=== PATIENT | male | born 1990 | race Caucasian/White ===

== ENCOUNTER 2016-06-22 00:19 | Emergency (ER) | payer OTHER ==
[~2016-06-22] VITALS: Ht 180.3 cm; Wt 77.1 kg
--- NOTE | 2016-06-22 01:15 | ED GENERAL ADULT ---
History of Present Illness General Chief Complaint: General Adult Stated Complaint: RIGHT SIDE TONSIL PAIN Source: patient, family, old records Exam Limitations: no limitations Vital Signs & Intake/Output Vital Signs & Intake/Output Vital Signs Date Time Temp Pulse Resp B/P Pulse O2 O2 Flow FiO2 Ox Delivery Rate 06/22 0058 97.5 79 16 143/84 100 Room Air Allergies Coded Allergies: No Known Allergies (06/22/16) Triage Note: 26YO MALE TO TRIAGE W/CO "SWOLLEN R TONSIL" STATES HE HAD "SORE THROAT X 2 D AND HE TOOK ANTIBIOTICS THAT WERE LEFT OVER X 3 DOSES AND NOW PAIN AND SWELLING HAVE WORSENED"CO PAIN TRAVELING TO R EAR AND DOWN HIS NECK. Triage Nurses Notes Reviewed? yes HPI: Patient has noticed a swollen lymph node underneath his right draw approximately one week ago. Patient has a history of recurrent strep throat. Patient had some leftover amoxicillin at home so he took it for 3 days but he states that it did not help. Upon stopping the amoxicillin the swelling got worse. Patient currently has chills but no fevers. Patient states that it is painful to swallow both food and liquids. Patient states that he is able to swallow without difficulty just hurts to do so. Patient denies any difficulty breathing. Patient was looking online and noticed that he might have an abscess in his throat so comes in for evaluation. Past History Travel History Traveled to [place] past 21 day No Medical History Any Pertinent Medical History? see below for history Other Medical Hx: Recurrent strep throat Surgical History Surgical History: non-contributory Psychosocial History What is your primary language [place] Tobacco Use: Current Not Daily Daily Tobacco Use Amount/Type: =< 4 Cigarettes daily ETOH Use: occasional use Illicit Drug Use: denies illicit drug use Family History Hx Contributory? No Review of Systems Review of Systems Constitutional: Reports: no symptoms. EENTM: Reports: see HPI, throat pain. Respiratory: Reports: no symptoms. Cardiovascular: Reports: no symptoms. GI: Reports: no symptoms. Genitourinary: Reports: no symptoms. Musculoskeletal: Reports: no symptoms. Skin: Reports: no symptoms. Neurological/Psychological: Reports: no symptoms. Hematologic/Endocrine: Reports: no symptoms. Immunologic/Allergic: Reports: no symptoms. All Other Systems: Reviewed and Negative Physical Exam Physical Exam General Appearance: well developed/nourished, alert, awake, mild distress Head: atraumatic Eyes: Bilateral: PERRL, EOMI. Ears, Nose, Throat: PHARYNGEAL ERYTHEMA BUT NO EXUDATES. pOSITIVE SWELLING TO THE RIGHT POSTERIOR TONSILLAR AREA. vERY SLIGHT UVULAR DEVIATION TO THE LEFT. tHERE IS NO HOT POTATO VOICE. Neck: lymphadenopathy (R) Respiratory: normal breath sounds, chest non-tender, no respiratory distress, lungs clear Cardiovascular: regular rate/rhythm, normal peripheral pulses Gastrointestinal: normal bowel sounds, soft, non-tender, no organomegaly Neurologic/Psych: no motor/sensory deficits, awake, alert, oriented x 3, normal gait, normal mood/affect Skin: intact, normal color, warm/dry Lymphatic: adenopathy Core Measures ACS in differential dx? No CVA/TIA Diagnosis: No Severe Sepsis Present: No Septic Shock Present: No Progress Differential Diagnoses I considered the following diagnoses in my evaluation of the patient: [ Retropharyngeal abscess, peritonsillar abscess, lymphadenitis] Plan of Care: Orders Procedure Date/time Status COMPREHENSIVE METABOLIC PANEL 06/22 110 Complete CBC WITHOUT DIFFERENTIAL 06/22 110 Complete Laboratory Tests 06/22/16 0141: Anion Gap 13, Estimated GFR > 60, BUN/Creatinine Ratio 12.2, Glucose 77, Calcium 9.9, Total Bilirubin 0.6, AST 22, ALT 28, Alkaline Phosphatase 66, Total Protein 8.0, Albumin 4.9, Globulin 3.1, Albumin/Globulin Ratio 1.6, CBC w Diff NO MAN DIFF REQ, RBC 4.81, MCV 90.0, MCH 30.6, RDW 13.1, MPV 8.3, Gran % 77.0 H, Lymphocytes % 13.3 L, Monocytes % 7.3, Eosinophils % 1.8, Basophils % 0.6, Absolute Granulocytes 10.3 H, Absolute Lymphocytes 1.8, Absolute Monocytes 1.0 H, Absolute Eosinophils 0.2, Absolute Basophils 0.1, PUBS MCHC 34.0 Diagnostic Imaging: Viewed by Me: CT Scan. Discussed w/RAD: CT Scan. Radiology Impression: PATIENT: CONSUELO TAYLOR PRESENT AGE: 26 PATIENT ACCOUNT NO: [id number] : 89 LOCATION: [facility] ORDERING PHYSICIAN: IVAN JONES MD SERVICE DATE: 06/22/16 EXAM TYPE: CAT - CT NECK W IV CONTRAST EXAMINATION: CT NECK WITH CONTRAST CLINICAL INFORMATION: Right posterior pharyngeal swelling. Concern for abscess. COMPARISON: None. TECHNIQUE: Contiguous helical images of the neck were obtained following the administration of IV contrast. 94 mL of Optiray 320 were administered without incident. Multiplanar reconstructions were performed. DLP: 377 mGy-cm. FINDINGS: There is soft tissue fullness to the right parapharyngeal space with a subtle area of low attenuation centrally measuring 12 mm with faint surrounding enhancement. There is no adjacent fat stranding. There are no drainable fluid collections. There are no pathologically enlarged cervical lymph nodes. The vasculature of the neck is unremarkable. The visualized base of the brain is unremarkable. The paranasal sinuses and mastoid air cells are clear. A normal thyroid gland is identified. The visualized lung apices are clear. 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 DICTATED BY: BRITTANY BROWN MD DATE/TIME DICTATED:06/22/16205 HOSPICE CLINICAL MANAGER: AISSATOU DATE/TIME TRANSCRIBED:06/22/16205 CONFIDENTIAL, DO NOT COPY WITHOUT APPROPRIATE AUTHORIZATION. <Electronically signed in Other Vendor System> SIGNED BY: BRITTANY BROWN MD 06/22/16214 Initial ED EKG: none Departure Departure Disposition: HOME OR SELF CARE Condition: Stable Clinical Impression Primary Impression: Tonsillitis Referrals: BENJAMIN CAMPBELL MD PATIENT HAS NO PRIMARY CARE DR (PCP/Family) Additional Instructions: TAKE ANTIBIOTICS PRESCRIBED RETURN IF SYMPTOMS WORSEN OR FOR ANY CONCERNS Departure Forms: Customer Survey General Discharge Information Prescriptions: Current Visit Scripts Amoxicillin/Potassium Clav (Augmentin 875-125 Tablet) 1 TAB PO BID #20 TAB Critical Care Note Critical Care Note Critical Care Time: non-applicable
[2016-06-22 01:49] LABS: ABSOLUTE BASOPHIL COUNT 0.1 /CUMM (0.0-0.2); ABSOLUTE EOSINOPHIL COUNT 0.2 /CUMM (0.0-0.7); ABSOLUTE GRANULOCYTE CT 10.3 /CUMM (1.4-6.5); ABSOLUTE LYMPH COUNT 1.8 /CUMM (1.2-3.4); BASOPHIL % 0.6 % (0.0-2.0); EOSINOPHIL % 1.8 % (0-5); HEMATOCRIT 43.3 % (42-52); MEAN CORPUSCULAR HGB 30.6 PG (27.0-31.0); MEAN PLATELET VOLUME 8.3 FL (7.4-10.4); PLATELET COUNT 203 /CUMM (130-400); RBC DISTRIBUTION WIDTH 13.1 % (11.5-14.5); RED BLOOD CELL CT 4.81 /CUMM (4.70-6.10); WHITE BLOOD CELL COUNT 13.4 /CUMM (4.8-10.8)
--- NOTE | 2016-06-22 02:15 | CT SCAN REPORT ---
EXAMINATION: CT NECK WITH CONTRAST CLINICAL INFORMATION: Right posterior pharyngeal swelling. Concern for abscess. COMPARISON: None. TECHNIQUE: Contiguous helical images of the neck were obtained following the administration of IV contrast. 94 mL of Optiray 320 were administered without incident. Multiplanar reconstructions were performed. DLP: 377 mGy-cm. FINDINGS: There is soft tissue fullness to the right parapharyngeal space with a subtle area of low attenuation centrally measuring 12 mm with faint surrounding enhancement. There is no adjacent fat stranding. There are no drainable fluid collections. There are no pathologically enlarged cervical lymph nodes. The vasculature of the neck is unremarkable. The visualized base of the brain is unremarkable. The paranasal sinuses and mastoid air cells are clear. A normal thyroid gland is identified. The visualized lung apices are clear. IMPRESSION: Soft tissue fullness to the right parapharyngeal space with mild peripheral enhancement likely claim representative of an inflammatory process, possibly a developing phlegmon without drainable fluid collections at this time.
[2016-06-22] MEDS ORDERED: AUGMENTIN 875-1 EACH PO (02:36)
[2016-06-22 02:46] VITALS: BP 140/69
== END 2016-06-22 02:48 ==
LOC: ERH 00:19
PROVIDERS: Emergency Medicine
DX: J03.90 Acute tonsillitis, unspecified (principal); Z72.0 Tobacco use